=== PATIENT | male | born 2005 | race African-American/Black ===

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

== ENCOUNTER 2023-08-16 20:45 | Emergency (ER) | payer MEDICAID ==
[~2023-08-16] VITALS: Ht 177.8 cm; Wt 70.0 kg
[~2023-08-16 20:45] MED LIST: TRAM50TA3 MT
[2023-08-16 20:54] VITALS: BP 110/59; PULSE 95; RESP 16; TEMP 98; O2SAT 100
== END 2023-08-17 04:44 | disposition home or self-care (01) ==
LOC: ER 20:45
DX: S91.311D Laceration without foreign body, right foot, subsequent encounter (principal); D64.9 Anemia, unspecified; X58.XXXD Exposure to other specified factors, subsequent encounter
CPT/HCPCS: 99281